=== PATIENT | male | born 1995 ===

== ENCOUNTER → 2020-11-14 | Outpatient (CLI) | payer SELFPAY ==
[2020-11-15 18:28] LABS: CORONAVIRUS (COVID19) CSH-NRL Negative (Negative)
== END ==
LOC: LAB SHORT 10:25
PROVIDERS: Physician Assistant
DX: Z20.9 Contact with and (suspected) exposure to unspecified communicable disease (principal); Z20.828 Contact with and (suspected) exposure to other viral communicable diseases
CPT/HCPCS: U0003